=== PATIENT | female | born 1995 | race Caucasian/White ===

== ENCOUNTER 2022-01-05 08:28 | Day surgery (SDC) | payer OTHER, BC ==
[2022-01-05 08:52] LABS: Specific Gravity 1.025 (1.005-1.030)
[2022-01-05] MEDS ORDERED: Ringers Lactate 1,000 ML IV ONE ×2 (08:58→11:45)
[2022-01-05] MEDS ORDERED: NA CHLORIDE 0.9% 50 ML ONE (08:59)
[2022-01-05] MEDS ORDERED: CEFOXITIN SODIUM 1 GM/VIAL ONE (08:59)
[2022-01-05] MEDS ORDERED: CELECOXIB 100 MG CAPSULE ONE (09:07)
[2022-01-05] MEDS ORDERED: ACETAMINOPHEN 500 MG TAB ONE (09:07)
[2022-01-05] MEDS ORDERED: BUPIVACAINE 0.25% PF 10 ML VIAL ONE (09:59)
[2022-01-05] MEDS ORDERED: propofoL 200 MG/20 ML VIAL IV ONE (10:20)
[2022-01-05] MEDS ORDERED: FENTANYL CITR 100 MCG/2 ML ONE (10:20)
[2022-01-05] MEDS ORDERED: ONDANSETRON 4 MG/2 ML VIAL ONE ×2 (10:21→11:58)
[2022-01-05] MEDS ORDERED: MIDAZOLAM HCL 2 MG/2 ML INJ ONE (10:21)
[2022-01-05] MEDS ORDERED: dexAMETHasone 10 MG/ML VIAL ONE (10:21)
[2022-01-05] MEDS ORDERED: LIDOCAINE 2% MPF 5 ML VIAL ONE (10:21)
[2022-01-05] MEDS ORDERED: ROCURONIUM 50 MG/5 ML VIAL IV ONE (10:21)
[2022-01-05] MEDS ORDERED: GLYCOPYRROLATE 0.2 MG/ML SYR ONE (11:31)
[2022-01-05] MEDS ORDERED: KETOROLAC 30 MG/ML INJ ONE (11:31)
[2022-01-05] MEDS ORDERED: NEOSTIGMINE 1 MG/ML -10 ML VIAL ONE (11:41)
--- NOTE | 2022-01-05 11:44 | P.OP ---
Preoperative diagnosis: Cholecystitis with Cholelithiasis Postoperative diagnosis: Cholecystitis with Cholelithiasis Primary procedure: Laparoscopic Cholecystectomy with ICG Cholangiography Anesthesia: GETA + Local Estimated blood loss: <5cc Specimen: Gallbladder Findings: distended gallbladder, short cystic duct Complications: None Transferred to: Recovery Room Condition: Good
[2022-01-05] MEDS: HYDROMORPHONE HCL 1 MG/ML INJ ONE ×4 (11:55→12:23)
[2022-01-05] MEDS ORDERED: PROMETHAZINE INJ 25 MG/ML AMP ONE (12:12)
--- NOTE | 2022-01-05 12:30 | OP ---
Date of Procedure: 01/05/2022 Surgeon: Corky Strickland MD, Preoperative Diagnosis: Cholecystitis with cholelithiasis. Postoperative Diagnosis: Cholecystitis with cholelithiasis. Procedure Performed: Laparoscopic cholecystectomy with ICG that is indocyanine green cholangiography . Anesthesia: General endotracheal plus local with 0.25% Marcaine. Estimated Blood Loss: Less than 5 mL. Specimen: Gallbladder. Findings: Distended gallbladder and short cystic duct and cholelithiasis. Complications: None. Disposition: The patient was transferred to recovery room in good condition. Procedure In Detail: After informed consent was obtained, the patient was brought to the operating r oom, prepped and draped in the usual sterile fashion after adequate anesthesia was achieved. A supra umbilical area was anesthetized with 0.25% Marcaine, sharply incised. A 5 mm 0-degree optical trocar was introduced into the abdomen without evidence of complication. Insufflation was obtained to 15 m mHg at this time. There was no injury to vital structures. At this point, I positioned the patient in head-up position. No injury to vital structures upon entry into the abdomen. Additional trocar w as placed in the epigastrium, this similarly anesthetized, sharply incised, and a 5 mm trocar was sanjay viviane under direct visualization without evidence of complication. Additional trocar was placed in the right upper quadrant, similarly anesthetized, sharply incised, and a 5 mm trocar placed under direct visualization without evidence of complication. The umbilical trocar was then up-sized to a 12 mm u nder direct visualization without evidence of complication. The patient was positioned head up right -side up position. Ratcheted graspers were used to grasp the patient's gallbladder and placed toward s the patient's right shoulder. ICG cholangiography was performed at this time showing the origin of the cystic duct and tracing back to the common duct. It was noted to be a somewhat short cystic zahida t, but the confluence was visualized using ICG cholangiography. Dissection was continued down at thi s point at the Luz pouch of the gallbladder to dissect 2 structures entering the gallbladder. T hey identified as both the cystic duct and cystic artery. Both of these were skeletonized. Critical view of safety was obtained at this point, verified with ICG cholangiography once again. The cystic duct was found to be short, but adequate length for ligation with titanium clips. Double titanium c lips were placed doubly on the proximal side and singly on the distal side of both cystic duct and cy stic artery. These structures were then ligated using Endo Pavel. At this point, the gallbladder w as removed from the hepatic fossa without evidence of complication, placed in EndoCatch bag, removed through the umbilical trocar and sent off for pathologic examination. The abdomen was then re-insuff lated at this point. I copiously irrigated the hepatic fossa and no additional hemostatic maneuvers were required. There was no leakage of bile from the double titanium clips on the cystic duct and th e anatomy was found to be intact with common duct protected throughout. The irrigant was then suctio wiley out in its entirety. The patient was placed back in neutral position. Remaining effluent was blount ctioned out. The umbilical trocar site was then closed using a Ezio-Mack suture passer with 0 Vicryl in an interrupted fashion with good approximation of tissues. The abdomen was completely desu fflated under direct visualization without evidence of complications. Remaining trocars were removed . All skin incisions were copiously irrigated and closed with a 4-0 Monocryl in a running fashion. Dermabond placed over top. The patient tolerated the procedure well without evidence of complication and transferred to PACU in good condition. All counts were correct at the end of the case. SAM/RAHEEL Voice ID: [id number] Report ID: [id number]
[2022-01-05] MEDS ORDERED: HYDROCODONE/APAP 7.5/325 MG TAB ONE (13:12)
[2022-01-05 13:49] VITALS: BP 130/71; O2SAT 100
[2022-01-05 13:50] VITALS: TEMP 97.2
== END 2022-01-05 13:42 | disposition home or self-care (01) ==
LOC: OR 08:28
PROVIDERS: ATTEND Surgery
PROC: BF13YZZ Fluoroscopy of Gallbladder and Bile Ducts using Other Contrast (ICD-10-PCS; 2022-01-05)
PROC: 0FT44ZZ Resection of Gallbladder, Percutaneous Endoscopic Approach (ICD-10-PCS; principal; 2022-01-05 11:15)
DX: K80.10 Calculus of gallbladder with chronic cholecystitis without obstruction (principal); Z20.822 Contact with and (suspected) exposure to COVID-19
CPT/HCPCS: 81025; 82947; 88304; 47563; U0003; J2704; J2710; J2550; J2250; J3010; J1100; J1170 ×2; J7120 ×2; J0694; J2405 ×2